=== PATIENT | male | born 1955 | race Caucasian/White ===

== ENCOUNTER 2022-03-18 08:48 | Outpatient (CLI) | payer OTHER, SELFPAY ==
[2022-03-18 11:35] LABS: Albumin* 4.7 g/dL (3.3-5.0); Chloride* 108 mmol/L (96-114)
[2022-03-18 11:36] LABS: Potassium* 4.4 mmol/L (3.6-5.1); Sodium* 140 mmol/L (135-149)
[2022-03-18 11:38] LABS: Aspartate Amino Transferase* 32 U/L (12-35); Bilirubin Total* 1.7 mg/dL (0.1-1.5); Blood Urea Nitrogen* 15 mg/dL (7-30); Carbon Dioxide* 24 mmol/L (20-32); Cholesterol* 174 mg/dL (90-199); Creatinine* 0.8 mg/dL (0.5-1.5); Estimated Glomerular Filt Rate 99 ml/min; Glucose* 101 mg/dL (60-115); Total Protein* 7.4 g/dL (6.0-8.3)
[2022-03-18 11:39] LABS: Alanine Aminotransferase* 42 U/L (4-50); Alkaline Phosphatase* 76 U/L (40-150); Calcium* 9.5 mg/dL (8.4-10.6); HDL Cholesterol* 36 mg/dL (>=40); LDL Cholesterol Calculated 86 mg/dL (<100); Triglycerides* 259 mg/dL (40-149)
[2022-03-18 12:07] LABS: PSA Screen* 1.51 ng/mL (0.10-4.00)
== END 2022-03-18 08:49 | disposition home or self-care (01) ==
PROVIDERS: Visit Provider Internal Medicine
DX: Z00.00 Encounter for general adult medical examination without abnormal findings (principal); I10 Essential (primary) hypertension; Z12.5 Encounter for screening for malignant neoplasm of prostate; Z13.6 Encounter for screening for cardiovascular disorders
CPT/HCPCS: 80053; 80061; 84153

== ENCOUNTER 2023-04-03 07:25 | Outpatient (CLI) | payer MEDICARE, BC, SELFPAY | END 2023-04-03 07:26 | disposition home or self-care (01) | LOC: NFLDREF 04-15 12:45 | PROVIDERS: PCP Internal Medicine; Referring Provider Internal Medicine; Visit Provider Internal Medicine | DX: I10 Essential (primary) hypertension (principal); Z13.220 Encounter for screening for lipoid disorders; Z12.5 Encounter for screening for malignant neoplasm of prostate | CPT/HCPCS: 80053; 80061; G0103 ==

== ENCOUNTER 2023-10-25 14:56 | Outpatient (CLI) | payer MEDICARE, BC, SELFPAY ==
--- OUTSIDE RECORDS SUMMARY | 2023-10-27 21:52 | XMS_ITS | Clinical Summary ---
Author Organization [facility] Address [place], [place] [address] Care Team Providers Care Police Clerk Name Role Phone Herman Gil MD Primary Care Provider Allergies Active Allergy Reactions Criticality Noted Date Comments Monosodium Glutamate Medications Medication Sig Dispensed Refills Start Date End Date Status ALBUTEROL (REFILL) INHL prn 0 Active AMITRIPTYLINE 25 MG TAB take 1 tablet (25mg) by oral route once daily at bedtime 0 06/11/2006 Active Active Problems Problem Noted Date Diagnosed Date Unspecified essential hypertension Unspecified asthma(493.90) Other and unspecified hyperlipidemia Nonorganic sleep disorder, unspecified Attention deficit 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 Dizziness and giddiness Immunizations Name Administration Dates Next Due Influenza, IIV3 (Age >=3 years) 12/17/2005 Td (Age >=7 Years) 03/13/2003 Family History Medical History Relation Name Comments Hypertension Father Alcohol/Drug Other sibling Hypertension Other sibling Relation Name Status Comments Father Other Social History Tobacco Use Types Packs/Day Years Used Date Smoking Tobacco: Never Alcohol Use Standard Drinks/Week Comments No 0 (1 standard drink = 0.6 oz pur e alcohol) Sex and Gender Information Value Date Recorded Sex Assigned at Not on file Gender Identity Not on file Sexual Orientation Not on file Obstetrics History Last Filed Vital Signs Vital Sign Reading Time Taken Comments Blood Pressure 133/84 06/23/2012 11:07 AM CDT Pulse 65 06/23/2012 11:07 AM CDT Temperature 36.3 ??C (97.4 ??F) 09/18/2006 6:30 PM CD T Respiratory Rate - - Oxygen Saturation - - Inhaled Oxygen Concentration - - Weight 119 kg (262 lb 6.4 oz) 06/23/2012 11:07 A M CDT Height - - Body Mass Index - - Plan of Treatment Health Maintenance Due Date Last Done Comments Tdap 1968 Depression screening for age 12+ 1969 BMI (ht and wt on same day) for age 18+ 10/04/1975 Hepatitis C screening for age 18-79 10/04/1975 Colonoscopy through age 75 2002 Zoster (shingles) series for age 50+ (1 of 2) 10/04/19 08 Lipids for age 45-75 04/08/2011 04/08/2006 Tetanus booster 03/13/2013 03/13/2003 Pneumococcal series for age 65+ (1 of 1 - PCV) 023 COVID-19 vaccine series (1 - 2022- season) 4 Influenza for age 65+ 10/11/2023 12/17/2005 Procedures Procedure Name Priority Date/Time Associated Diagnosis Comments LIPID PANEL Timed 04/08/2006 9:31 AM CAREER SERVICES ASSISTANT from Last 3 Months or Most Recently Relevant to Health Maintenance Results * (ABNORMAL) LIPID PANEL (04/08/2006 9:31 AM CAREER SERVICES ASSISTANT) CHOLESTEROL,TOTAL 154 110 - 199 mg/dL [facility] TRIGLYCERIDES 179(H) <150 mg/dL [facility] HDL CHOLESTEROL 33(L) >40 mg/dL [facility] CHOL/HDL RATIO 4.67(H) <4.51 [facility] LDL CHOLESTEROL 85 <131 mg/dL [facility] PATIENT STATUS Fasting [facility] 04/08/2006 9:31 AM CAREER SERVICES ASSISTANT 04/08/2006 9:31 AM CAREER SERVICES ASSISTANT Enrique Thakur MD CHEMISTRY [facility] [address] [place] [address] from Last 3 Months or Most Recently Relevant to Health Maintenance Care Teams Police Clerk Relationship Specialty Start Date End Date Herman Gil MD PCP - General 06/15/12
== END 2023-10-25 14:57 | disposition home or self-care (01) ==
LOC: AMB 10-27 21:50
PROVIDERS: PCP Internal Medicine; Visit Provider Emergency Medicine
DX: R41.82 Altered mental status, unspecified (principal)
CPT/HCPCS: A0998

== ENCOUNTER 2023-12-10 07:30 | Outpatient (RCR) | payer MEDICARE, BC, SELFPAY ==
--- NOTE | 2023-10-05 16:29 | PT.OPEX ---
PT [place] Out[facility] Eval PT [facility] Outpatient Eval Start: 10/05/23 11:40 Freq: Status: Active Protocol: Document 10/05/23 11:40 ESAU (Rec: 10/05/23 11:54 ESAU [id number]) E-signed By Hilda Aburto DPT Physical Therapy Outpatient Evaluation Insurance Information Recert Due Date 01/03/24 Insurance Name Medicare B Medical Diagnosis R shoulder bursitis Treating Diagnosis R shoulder pain, impaired R shoulder ROM, impaired R shoulder strength, impaired posture Subjective Subjective Patient reports chronic R shoulder pain for the last month or so. Pain has been staying about the same. He reports increased pain with reaching up, out, back, or lifting. He denies any recent injury or trauma. Reports hx of R shoulder RCR back in 2016. States he had some flare up of R shoulder pain back in 2019 but that seemed to resolve with time. He reports having xrays taken, no MRI. Referred to PT and patient to return to MD if pain/sx do not improve. He has not been needing pain meds . Hasn't tried ice/heat. Pain range 0-7/10. He denies pain at rest or with light activity. Pain increases to 7 /10 with reaching up/out/back or lifting. Pain localized to R anterior and R lateral shoulder. Sleep is interrupted at times. Patient is R handed. Date of Last Physician Visit 09/21/23 Current Work Status [employer] Precautions Treatment Precautions/Contraindications HX R RCR 2016, L RCR 2018 HTN Assessment Assessment/Impression Patient is a 68 year old male with R shoulder pain, impaired R shoulder ROM, impaired R shoulder strength, impaired posture. Pain range 0-7/10. He reports hx of R shoulder RCR 2016. R shoulder AROM: flex 150 degrees with pain, abd 150 degrees with pain, IR with hand behind LB to mid thoracic spine, ER with hand behind head/upper back to upper thoracic spine. R shoulder MMT: flex 4-/5 with pain, abd/scap 4-/5 with pain, ER/IR 4/5. R shoulder special tests: Speeds Test positive with pain/weakness, Supraspinatus Test positive with pain/weakness. Patient is tight, tender with palpation R anterior shoulder including R bicep tendon and R UT/supraspinatus. Patient with fwd head, rounded shoulders posture. Patient would benefit from skilled PT for pain/sx management, improved R shoulder ROM, improved R shoulder strength, return to full functional use of R shoulder/UE, and establishment of HEP. Plan of Care Rehabilitation Potential Good Physical Therapy Goals 1. Decrease R shoulder pain to less than/equal to 3/10 with daily/work activities and with the progression of PT activities over the next 4-6 weeks. 2. Decrease R shoulder pain so that patient is able to sleep through the night on a regular basis within 3-4 weeks. 3. Improve R shoulder AROM over the next 6-8 weeks for return to daily/work activities without flare up of pain. 4. Patient will be educated on posture and body mechanics over the next 4-6 weeks for decreased stress to UBN/shoulder region, improved shoulder mechanics, and decreased shoulder pain. 5. Improve R shoulder strength over the next 10-12 weeks for return to PLF with daily/work activities without flare up of pain. 6. Patient will be I with HEP within 12 weeks for progression toward above goals, ongoing self management of pain/sx, ongoing self improvements in posture/shoulder strength/ mechanics, and for return to PLF with daily/work activities without flare up of pain. Coordination/Communication With Referral Source Treatment Plan/Direct Interventions Manual Therapy,Therapeutic Exercises,Ultrasound Frequency/Duration 1x/week Patient Will Be Discharged From Therapy Completion of LTG(s),Skills Plateau,Independent w/HEP, Independently Progressing Evaluation Billing Untimed Code Treatment Minutes 20 Complexity Moderate Certification Information Initial Certification Date 10/05/23 Ending Certification Date 01/03/24 Provider Signature Required Yes Provider Signature Shows Agreement With POC & Medical Necessity Physician NPI Number Write NPI# Here Physician Comment/Change : Physician Signature & Date Requested Please Sign/Date Here
== END 2024-04-08 23:59 | disposition home or self-care (01) ==
PROVIDERS: PCP Internal Medicine; Visit Provider Orthopaedic Surgery
DX: M75.51 Bursitis of right shoulder (principal); M25.511 Pain in right shoulder; Z74.09 Other reduced mobility; R53.1 Weakness; R29.3 Abnormal posture; Z51.89 Encounter for other specified aftercare
CPT/HCPCS: 97110; 97140; 97162